=== PATIENT | male | born 1970 | race Two or more races ===

== ENCOUNTER 2025-03-13 10:21 | Outpatient (CLI) | payer OTHER, SELFPAY ==
--- NOTE | 2025-03-13 09:45 | DI.RAD_ITS ---
Exam(s) XR CLAVICLE LT EXAM: XR CLAVICLE LT CLINICAL HISTORY: F/U FRACTURE TECHNIQUE: 2D digital imaging was performed. Two views COMPARISON: No exams were available for comparison FINDINGS: BONES: There is a fracture at the distal end of the clavicle. There is separation of fracture fragments. There is no significant bony bridging. There is some spurring at the fracture site. JOINTS: AC joint not widened. SOFT TISSUE: Unremarkable. IMPRESSION: Subacute appearing distal clavicle fracture which appears nonunited. DATA REPOSITORY: RADIATION DOSE DELIVERED:
== END 2025-03-13 10:22 | disposition home or self-care (01) ==
LOC: DIORS 10:22
PROVIDERS: Visit Provider Student in an Organized Health Care Education/Training Program
DX: S42.032A Displaced fracture of lateral end of left clavicle, initial encounter for closed fracture (principal)
CPT/HCPCS: 73000